=== PATIENT | female | born 1955 | race Caucasian/White ===

== ENCOUNTER 2024-12-06 11:30 | Outpatient (RCR) | payer MEDICARE, OTHER, SELFPAY ==
--- NOTE | 2024-10-31 14:25 | HP.PTEVAL ---
Patient's Visit Information Visit Information Visit Information: DAVID BRUNO is a 69 year old F referred to Physical Therapy by JUANA RAMÍREZ with a diagnosis of C-spine and L-spine DDD and vertigo. Date of Evaluation: 10/31/24 Physical Therapist: JORGE Barrett Visit Plan Frequency: 2x /Week Duration: 2 Months Plan: 2x/ week for 8 weeks for 1. pt will try repeated supine to sit to see if her dizziness will get better with habituation 2. Work on stretching scalenes, upper trap, and levator stretches. Give stretches for HEP. May use some MT if needed. 3. work on core stability program and to eventually give for home HEP: repeated supine to sit X 10 several times a day to see if dizziness improves. Also to assess her BP at home and see if it is a factor 4. work on gait and balance exercises with vertical head movements and may use the foam as well with EO/EC Subjective Subjective: Pt has always had LB issues and sees a chiropractor. About a year ago she got vertigo and can only sleep on the L side. The ENT put her crystals back in place in December. She is not having the spinning anymore. She feels off somedays but does have allergies. She feels that she needs to strengthening her neck muscles. She feels like when her neck is out is when she has issues. She exercises at the [facility]. If her neck is out she might get tingling in her arms. Vertigo she feels off and feels more off balance some days. She tries to drink a lot of water and has a lot of sinus issues. She has amada valve prolapse and feels off if she does not sleep. She has felt better going to chiropractor 1X. per week for the last few weeks and has been better. LBP has had issues with that. She tires to heavy weight and it hurts her back. MRI may have showed bulging disc of L5. She has no pain down her legs. She gets sciatica once in awhile. She has had a R shoulder fracture 2 years ago but tries all the machines. She rates her dizziness as a 3/10/ She is not sure what causes her dizziness. Pain Neck pain: Pain Intensity (Out of 10): 4 LBP: Pain Intensity (Out of 10): 4 Objective Objective: -R and L Hallpike Did get dizzy going from supine to sit from Hallpike position Repeated supine to sit with 1 pillow X 10 and got dizzy each time but it did subside fairly quickly Gait: Pt has normal gait pattern FGA: 28 VOR: no dizziness with horizontal smooth pursuits and slight dizziness with vertical smooth pursuit. Pt had no dizziness with head and eyes move together but did get some dizziness with head and eyes move vertical C-spine AROM: flexion 75%, Ext 50%, Rot B 80%, SB B 75% Pt very tight neck musculature ( upper trap, levator, scalenes) Trunk AROM: flexion 75%m Ext 50%, 75% B, Rot B 50% Balance/Special Test Scores Functional Gait Assessment Score: 28 % Disability: 6.6700 Oswestry Low Back Score: 14 Goals Goal 1:: I HEP Goal Time Frame: 6-8 Weeks Goal 2:: Be able to complete neck stretching to increase ROM and decrease freq of neck pain Goal Time Frame: 6-8 Weeks Goal 3:: Be able to go from supine to sit with no dizziness Goal Time Frame: 6-8 Weeks Goal 4:: Be able to complete walking with vertical head turns without dizziness Goal Time Frame: 6-8 Weeks Goal 5:: Be able to complete core stability program and complete it at home Goal Time Frame: 6-8 Weeks Rehabilitation Potential Rehabilitation Potential: Good Anticipated Interventions Patient/Client Instruction: Educate patient on: Condition and Plan of Care For the Purpose of:: To decrease pain, To increase ROM, To improve nutrient delivery to tissue, To improve muscle performance and motor function, To improve ability to perform ADL's, To increase tolerance to activity/condition/position, To improve performance and independence with ADL's, To decrease level of supervision to perform tasks, To improve ability of physical actions for home/community/work/leisure, To improve gait and locomotor functions, To improve health of tissue, To decrease soft tissue restriction, To increase flexibility/ROM and To improve balance Therapeutic Exercise to Include: Strength training, Balance training, Postural training, Flexibilty training, Neuromotor development, Passive ROM, Active ROM, Dynamic Lumbar Stabilization and Scapular Strength/Stabilization For the Purpose of:: To decrease pain, To increase ROM, To improve nutrient delivery to tissue, To increase oxygenation perfusion, To improve ability to perform ADL's, To increase tolerance to activity/condition/position, To improve performance and independence with ADL's, To decrease level of supervision to perform tasks, To improve ability of physical actions for home/community/work/leisure, To improve gait and locomotor functions, To improve health of tissue, To decrease soft tissue restriction, To increase flexibility/ROM, To improve balance and To improve safety with gait Functional Training to Include: Gait training For the Purpose of:: To improve gait and locomotor functions Manual Therapy Techniques to Include: Passive ROM and Soft tissue mobilization For the Purpose of:: To decrease pain, To increase ROM, To improve nutrient delivery to tissue, To improve health of tissue, To decrease soft tissue restriction and To increase flexibility/ROM Text: Thank you for the opportunity to evaluate your patient. For Medicare and Medicare HMO plans, please review the plan of care and approve it. It will need to be FAXED BACK to us at [phone] for Medicare purposes. For Medicare only, by signing this I certify the plan of care. Please let me know if there are questions or concerns regarding this plan of care. Physician Signature: Date:
--- NOTE | 2024-12-06 12:09 | HP.PTDCSUM ---
Discharge Summary D/C summary: It has been my pleasure to treat DAVID BRUNO referred by JUANA RAMÍREZ, with the diagnosis of C-spine and L-spine DDD and vertigo for a total of 7 visit(s). Discharge Date: 12/06/24 Please see the following information for a summary of their discharge status. Subjective Subjective: On November woke up from sleeping and was dizzy 7-19 and 7-20. Had lots of congestion. The room spinning lasted a long time. She feels that her neck pain is yes and no better. She has not been doing the exercises due to life things. Pain Neck pain: Pain Intensity (Out of 10): 5 LBP: Pain Intensity (Out of 10): 4 Overall Improvement % Improvement: 50 Objective Objective/Function: - R Hallpike for dizziness or nystagmus Pt congestion seems to be related to her dizziness but in talking with her she mentioned some compressed discs in her neck. Differential DX look into sinus issues or cervicogenic dizziness with compression issues... Goals Goal 1:: I HEP Goal Progress: Goal Met Goal 2:: Be able to complete neck stretching to increase ROM and decrease freq of neck pain Goal Progress: Not Progressing Goal 3:: Be able to go from supine to sit with no dizziness Goal Progress: Progressing Goal 4:: Be able to complete walking with vertical head turns without dizziness Goal Progress: Progressing Goal 5:: Be able to complete core stability program and complete it at home Goal Progress: Goal Met Plan Plan: DC PT. Pt wants to see a different ENT and possibly try Massage Therapy D/C Information Discharge Comments: DC PT d/c sentence: If there are questions or concerns regarding this patient's physical therapy, please feel free to call me at [phone]. Thank you for the referral of this patient. Sincerely, Chiara Brush, MPT Balance/Gait/Functional tests Balance/Special Test Scores Functional Gait Assessment Score: 28 % Disability: 6.6700 Oswestry Low Back Score: 12 Improvement % Improvement: 50
== END 2024-12-06 19:00 | disposition home or self-care (01) ==
LOC: PT 11:30
PROVIDERS: PCP Internal Medicine
DX: R42 Dizziness and giddiness (principal); M50.30 Other cervical disc degeneration, unspecified cervical region; M51.369 Other intervertebral disc degeneration, lumbar region without mention of lumbar back pain or lower extremity pain
CPT/HCPCS: 97110; 97140; 97163; 97530